=== PATIENT | female | born 1990 | race Hispanic/Latino ===

== ENCOUNTER 2017-01-18 03:47 | Inpatient (IN) ==
[2017-01-18 04:13] LABS: URINE SOURCE VOIDED
[2017-01-18 04:15] LABS: BILIRUBIN URINE NEGATIVE (NEGATIVE); BLOOD URINE NEGATIVE (NEGATIVE); CLARITY CLEAR (CLEAR); COLOR YELLOW; GLUCOSE URINE NEGATIVE (NEGATIVE); LEUKOCYTES URINE 2+ (NEGATIVE); NITRITE URINE NEGATIVE (NEGATIVE); PROTEIN URINE NEGATIVE (NEGATIVE); UROBILINOGEN URINE NORMAL
[2017-01-18] MEDS ORDERED: PHENERGAN IV PRN (04:17)
[2017-01-18] MEDS ORDERED: LR 1,000 ML IV SCH ×2 (04:17→06:48)
[2017-01-18] MEDS ORDERED: SODIUM CHLORIDE 0.9% INJ PRN (04:17)
[2017-01-18] MEDS ORDERED: STADOL IV PRN ×2 (04:17→06:48)
[2017-01-18] MEDS ORDERED: AMPICILLIN 2 GM/NS 2 GM/100 ML IVPB IV ONE (04:30)
[2017-01-18] MEDS ORDERED: KEFZOL 1 GM/D5W 1 GM/50 ML IVPB IV PRN (06:48)
[2017-01-18] MEDS ORDERED: TYLENOL PO PRN (06:48)
[2017-01-18] MEDS ORDERED: ZOFRAN IV PRN (06:48)
[2017-01-18] MEDS ORDERED: PEPCID PO PRN (06:48)
[2017-01-18] MEDS ORDERED: PITOCIN 30 UNITS/LR 30 UNITS/500 ML IV.SOLN IV SCH (06:48)
[2017-01-18] MEDS ORDERED: PEPCID IV PRN (06:48)
[2017-01-18] MEDS ORDERED: SODIUM CHLORIDE 0.9% INJ SCH (07:00)
[2017-01-18 07:02] LABS: MANUAL DIFF NEEDED? NO
[2017-01-18 07:04] LABS: BASO% 0.1 % (0.0-0.8); EOS# 0.06 X1000 (0.0-0.7); EOS% 0.7 % (0.0-10.0); HEMATOCRIT 40.6 % (37.0-47.0); HEMOGLOBIN 14.1 g/dL (12.0-16.0); IMM GRAN# 0.04 X1000 (0.0-0.04); IMM GRAN% 0.5 % (0.0-0.5); LYMPH# 1.82 X1000 (1.2-3.4); LYMPH% 21.4 % (20.5-51.1); MCH 30.6 PG (27-31); MCHC 34.7 g/dL (33-37); MCV 88.1 FL (81-99); MONO# 0.89 X1000 (0.11-0.59); MONO% 10.5 % (1.7-9.3); MPV 14.5 FL (7.4-10.4); NEUT% 66.8 % (42.2-75.2); PLT 127 X1000 (130-400); RBC 4.61 XMIL (4.2-5.4)
[2017-01-18] MEDS: AMPICILLIN 1 GM/NS 1 GM/50 ML IVPB IV SCH ×3 (07:58→13:41)
[2017-01-18] MEDS ORDERED: ZITHROMAX 500 MG/NS 500 MG/250 ML IVPB IV ONE (08:04)
[2017-01-18] MEDS ORDERED: XYLOCAINE 1% INJ ONE (09:07)
[2017-01-18] MEDS ORDERED: MINERAL OIL PO ONE (09:07)
[2017-01-18] MEDS ORDERED: XYLOCAINE-MPF 1% INJ ONE ×2 (09:30→13:17)
[2017-01-18] MEDS ORDERED: PERCOCET-10 PO PRN (13:19)
[2017-01-18] MEDS ORDERED: BENADRYL IV PRN (13:19)
[2017-01-18] MEDS ORDERED: M-M-R II VACCINE SUBQ ONE (13:19)
[2017-01-18] MEDS ORDERED: PITOCIN 20 UNITS/LR 20 UNITS/1,000 ML IV.SOLN IV SCH (13:19)
[2017-01-18] MEDS ORDERED: HYDROXYZINE PO PRN (13:19)
[2017-01-18] MEDS ORDERED: PERCOCET-5 PO PRN (13:19)
[2017-01-18] MEDS ORDERED: PITOCIN IM PRN (13:19)
[2017-01-18] MEDS ORDERED: HYDROXYZINE IM PRN (13:19)
[2017-01-18] MEDS ORDERED: PRECARE PO SCH (13:19)
[2017-01-18] MEDS ORDERED: CYTOTEC PO PRN (13:19)
[2017-01-18] MEDS ORDERED: NORCO-10 PO PRN (13:19)
[2017-01-18] MEDS ORDERED: BOOSTRIX VACCINE IM ONE (13:19)
[2017-01-18] MEDS ORDERED: XYLOCAINE-MPF 1% INJ PRN (13:19)
[2017-01-18] MEDS ORDERED: AMBIEN PO PRN (13:19)
[2017-01-18] MEDS ORDERED: MINERAL OIL PO PRN (13:19)
[2017-01-18] MEDS ORDERED: BENADRYL PO PRN (13:19)
[2017-01-18] MEDS ORDERED: PITOCIN 30 UNITS/LR 30 UNITS/500 ML IV.SOLN IV ONE (13:19)
--- NOTE | 2017-01-18 13:23 | OPERATIVE NOTE ---
PROCEDURE DATE: 01/18/2017 PRIMARY CARE PHYSICIAN: Kimani Lemus MD. TYPE OF DELIVERY: Spontaneous controlled vaginal delivery. FINDINGS: At 12:42 a 6 pound 12 ounce female was delivered in occiput anterior presentation. Apgars are 9 at 1 minute and 10 at 5 minute. SUMMARY: Fany Ureña is a 26-year-old primigravida who has had no care. She did have a late ultrasound in labor and delivery which was consistent with her last menstrual period which would place her at 40+ weeks' gestation. Blood work was performed. Her blood type is A positive Rubella immune. Hepatitis B surface antigen, HIV were negative. Group B strep was of course not performed. She did have a urine test that was positive for Chlamydia. There is no documentation that she was ever treated. She presented to Labor and delivery this morning having contractions. She had a cervical change and was admitted. We began ampicillin for group B strep prophylaxis. She received Zithromax and membranes ruptured, revealing nonparticulate light meconium-stained fluid. She progressed to labor without signs of distress or dystocia. She became complete and began pushing. She soon crowned. At that point, was placed in dorsal lithotomy position where spontaneous controlled vaginal delivery occurred. Once the 's head was delivered, the oropharynx was bulb suctioned. Shoulders and body delivered without complications. Cord was clamped and cut. The infant was handed to the nurses for further care and evaluation. Cord blood was obtained. Placenta was spontaneously delivered. It was intact. There was a midline tear. There are also bilateral labial tears. These were infiltrated with Xylocaine and oversewn using 2-0 Vicryl suture. Blood loss estimated 200 mL and no complications. The patient remained in the LDR recovering without difficulty. cc: Kimani Lemus MD
[2017-01-18] MEDS: PERI MEDS (DERMOPLAST/NUPERCAINAL/TUCKS) MISC PRN (17:11)
[2017-01-18] MEDS: PERICOLACE PO SCH (20:35)
[2017-01-19 07:00] LABS: HEMATOCRIT 31.4 % (37.0-47.0); HEMOGLOBIN 10.6 g/dL (12.0-16.0); MCH 30.2 PG (27-31); MCHC 33.8 g/dL (33-37); MCV 89.5 FL (81-99); MPV 14.2 FL (7.4-10.4); RBC 3.51 XMIL (4.2-5.4)
[2017-01-19] MEDS: NORCO-5 PO PRN (14:00)
[2017-01-19] MEDS: MOTRIN PO PRN (14:00)
[2017-01-19] MEDS: PERICOLACE PO SCH (21:10)
[2017-01-20] MEDS: MOTRIN PO PRN (09:29)
[2017-01-20] MEDS: NORCO-5 PO PRN (09:29)
[2017-01-20 11:45] VITALS: BP 108/79
[2017-01-20] MEDS: PERI MEDS (DERMOPLAST/NUPERCAINAL/TUCKS) MISC PRN (14:10)
--- NOTE | 2017-01-20 19:19 | DISCHARGE SUMMARY ---
ADMISSION DATE: 01/18/2017 DISCHARGE DATE: 01/20/2017 ADMITTING DIAGNOSIS: 1. Term . 2. No care. 3. Active labor. 4. Rh-negative blood type. Received RhoGAM. DISCHARGE DIAGNOSES: 1. Term . 2. No care. 3. Active labor. 4. Rh-negative blood type. Received RhoGAM. PROCEDURES: Vaginal delivery. CONDITION: Stable. DIET: As tolerated. ACTIVITY: Routine . MEDICATIONS: Proctofoam HC for hemorrhoids. [place] 5. Motrin 800. vitamins and iron. HISTORY: Please refer to Ms. Ureña's labor and delivery note. She was admitted with the above diagnoses and had a successful vaginal delivery. She has done well afterwards except for complaints of the hemorrhoids and desires discharge. PHYSICAL EXAMINATION: Vital Signs: Stable. She is afebrile. She is alert and cooperative, no distress. Neck: Supple. Lungs: Clear. Heart: Regular sinus rhythm. Abdomen: Benign, although slightly distended. : Uterus is firm. Extremities: No cyanosis, clubbing, edema in her extremities. DISCHARGE INSTRUCTIONS: We will discharge with above instructions. cc: MD Kimani Duvall MD
== END 2017-01-20 15:00 | disposition home or self-care (01) ==
LOC: P.OPLD 03:47 → P.LD 03:49 → P.WC 17:06
PROVIDERS: ADMIT Obstetrics & Gynecology; ATTEND Obstetrics & Gynecology